=== PATIENT | female | born 1980 | race Two or more races ===

== ENCOUNTER 2020-07-16 09:08 | Emergency (ER) | payer MEDICAID, OTHER ==
[~2020-07-16] VITALS: Ht 172.7 cm; Wt 99.8 kg
[2020-07-16 13:56] VITALS: BP 114/80
== END 2020-07-16 14:03 | disposition home or self-care (01) ==
LOC: ER 09:08
DX: S82.891A Other fracture of right lower leg, initial encounter for closed fracture (principal); W19.XXXA Unspecified fall, initial encounter; Y93.89 Activity, other specified; Y92.89 Other specified places as the place of occurrence of the external cause; Y99.8 Other external cause status
CPT/HCPCS: 29515; 73700